=== PATIENT | female | born 1980 | race Caucasian/White ===

== ENCOUNTER 2016-12-01 08:00 | Inpatient (IN) ==
[2016-12-01] MEDS ORDERED: miSOPROStol 25 MCG TABLET VG PRN (08:16)
[2016-12-01] MEDS ORDERED: Famotidine 20 MG/2 ML VIAL IVP PRN (08:16)
[2016-12-01] MEDS ORDERED: Ondansetron 4 MG/2 ML VIAL IVP PRN (08:16)
[2016-12-01] MEDS ORDERED: Metoclopramide 10 MG/2 ML VIAL IVP PRN (08:16)
[2016-12-01 08:52] LABS: Basophils % 0.4 %; Eosinophils % 0.4 %; Hematocrit 29.2 % (35.3-44.9); Hemoglobin 9.6 g/dL (11.5-15.4); Immature Granulocytes % 0.5 % (0-4); Immature Platelets 11.1 % (1.1-6.1); Lymphocytes % 16.9 %; Mean Corpuscular HGB Conc 32.9 g/dL (31.6-35.5); Mean Corpuscular Volume 91.3 fL (83.0-100.0); Mean Platelet Volume 11.1 fL (9.4-12.4); Monocytes # 0.5 K/mcL (0.0-1.3); Monocytes % 8.6 %; Neutrophils # 4.2 K/mcL (1.6-8.9); Platelet Count 144 K/mcL (140-400); Red Cell Distribution Width 14.6 % (11.5-14.5); Segmented Neutrophils % 73.2 %
--- NOTE | 2016-12-01 08:52 | OB/GYN History & Physical ---
Date of Encounter: 12/01/16 Time of Encounter: 08:45 Assessment and Plan (1) and not yet delivered in third trimester Current visit: Yes Status: Acute (2) 39 weeks gestation of Current visit: Yes Status: Acute (3) Diet controlled gestational diabetes mellitus in third trimester Current visit: Yes Status: Acute (4) LGA (large for gestational age) fetus affecting management of mother Current visit: Yes Status: Acute (5) Elective induction of labor planned Current visit: Yes Status: Acute plan is to induce patient with Cytotec and a Simon catheter plan is to anticipate vaginal delivery History of Present Illness HPI: Ms. Carcamo is a 36 year old female 2 para 1 at 39-3/7 weeks by last menstrual period equal to an 8-4/7 week ultrasound who presented for induction of labor secondary to term , favorable cervix with large for gestational age infant. Patient had an ultrasound one week ago which placed the baby at 3797 g which is greater than the 90th percentile. Patient is an A1 gestational diabetic well controlled and NSTs have been reactive. First baby was 8 pounds no complications with that . Patient's course other than diabetes has been unremarkable did advise once we got into the 39 week range we would induce. Patient denies any leaking of fluid could movement and no contractions GBS status was negative. Past Med Surg Social Fam HX - Past Medical History Medical history: no medical history, other (Gestational diabetes A1) Psychiatric history: no psych history - Past Surgical History Surgical History: other (Kidney stone removal) - Social History Smoking Status: Never smoker Smokeless Tobacco Status: No Alcohol use: none Drug use: none Occupational status: employed Current living situation: Home - Independent Activity Level: Independent ambulation Recent Out of Country Travel Within the Last 8 Weeks: No Exposure or Possible Exposure to Illness During Travel: No - Family History Father Living Status: Still Living Hx Family Endocrine Disorder: Yes (DIABETES) - Additional Family History Additional family history: Family history is noncontributory at this time Obstetrical History - Pregnancies : 2 Para: 1 Term: 1 : 0 Ab's: 0 Livin Medications and Allergies Ferrous Sulfate [Iron] 1 tab PO DAILY 12/01/16 [History] Folic Acid [Folic Acid] 1 tab PO DAILY 12/01/16 [History] Multivitamin [Flintstones] 1 each PO DAILY 12/01/16 [History] Allergies No Known Allergies Allergy (Verified 04/20/16 09:09) Review of System OB All systems PM: reviewed and no additional remarkable complaints except as stated Exam - Constitutional Constitutional: well developed, well nourished, no acute distress, average body habitus - HEENT HEENT: EOMI, PERRL - Neck Neck exam: full ROM - Lungs Respiratory exam: CTAB - Cardiovascular Cardiovascular exam: RRR - Abdomen Abdomen: Present: gravid - Cervix Dilation: 3 Effacement: 80 Station: -2 (simon catheter placed, with 25 g of Cytotec placed in the posterior fornix) - Comments Comments: heart tones 140s reactive occasional contractions Results Result Diagrams: 12/01/16 08:45 12/01/16 08:45 All other labs normal. - VTE Reasons for not Prescribing Prophylaxis: Treatment not Indicated - Low risk for VTE
[2016-12-01] MEDS: Ringers Solution, Lactated 1,000 ML IVC SCH ×2 (09:05→20:20)
[2016-12-01] MEDS ORDERED: EPHEDrine 50 MG/ML VIAL IVP PRN (12:24)
[2016-12-01] MEDS ORDERED: Ringers Solution, Lactated 500 ML IVC ONE (12:24)
[2016-12-01] MEDS ORDERED: Epidural Premix (fent/bupiv) 110 ML EP ONE ×2 (12:28→18:36)
[2016-12-01] MEDS ORDERED: Epidural Premix (fent/bupiv) 110 ML EP SCH (12:30)
--- NOTE | 2016-12-01 13:12 | Anesthesia Evaluation PreOp ---
Date of Encounter: 12/01/16 Time of Encounter: 13:10 - Past History Planned Operation: MEGHANN Cardiac History: Denies any Significant Hx Pulmonary History: Denies Any Significant HX NITROGEN OPERATOR History: Denies Any Significant HX Other Medical History: Diabetes Type II (gestational) Anesthesia History: No Prior Anesthetic Complications, Past Anesthesia : Yes Alcohol Use: none Drug use: none Medications and Allergies Ferrous Sulfate [Iron] 1 tab PO DAILY 12/01/16 [History] Folic Acid [Folic Acid] 1 tab PO DAILY 12/01/16 [History] Multivitamin [Flintstones] 1 each PO DAILY 12/01/16 [History] Allergies No Known Allergies Allergy (Verified 04/20/16 09:09) - Meds/Allergy Pre-op Review Medications Reviewed: Yes Allergies Reviewed: Yes Beta Blockers on Current Med List: No Anesthesia Results - Labs 12/01/16 08:45 12/01/16 08:45 Anesthesia Exam 111/74 Height: 1.6 Weight: 72kg NPO (# of Hours): 5 Pain Scale: 2 Pain Scale Used: Numeric (1 - 10) - HEENT Pupil (Motor): Pupils equal Mallampati: II Teeth: Normal Oral Opening: Greater than 3 - NITROGEN OPERATOR LOC: Oriented NITROGEN OPERATOR Motor: Normal RUE, Normal LUE, Normal RLE, Normal LLE, Normal Face NITROGEN OPERATOR Sensory: Normal: RUE, LUE, RLE, LLE, Face - Cardiac Rhythm: Regular Murmur: None JVD: No Carotid Bruit: No - Pulmonary Breath Sounds: bilateral Clear Respiratory Effort: Symmetrical Anesthesia Assess/Plan ASA Score: 2 Modified Ivonne Scale for Level of Consciousness: Cooperative, oriented, and tranquil Anesthetic Plan: General (plan b), Regional (plan a) Autologous Blood: Yes Monitoring Plan: Standard Monitors
--- NOTE | 2016-12-01 13:14 | Anesthesia Procedures ---
Date of Encounter: 12/01/16 Time of Encounter: 13:12 Procedures: Anesthesia - Epidural/Spinal Patient ID/Chart reviewed: Yes Patient examined: Yes OB Eval: Gestational age: 39.3 OB Eval: : 2 OB Eval: Hx Para: 1 OB Eval: Dilated at (cm): 4 OB Eval: Contractions: Non-stressed pattern Consent Obtained: Yes Supplemental Oxygen: None/Room Air Site Prep: Aseptic Technique, Sterile prep and drape, Povidone-Iodine 1% Patient position: upright Local Anesthetic: Lidocaine 1% Amount of Local Anesthetic used: 3 Touhy Needle Gauge: 18 Touhy Needle Depth (cm): 6 Catheter Depth at Skin (cm): 14 Test Dose (1.5% Lido + Epi): Volume given (mls): 5 Test Dose Result: Negative Loading Dose: Other: 5ml pharm bag premix Loading Dose Administered: Thru Catheter Infusion Med: 0.125% Bupivacaine w/ 2 mcg/ml Fentanyl Infusion Rate (mls/hr): 14 ([id number] [id number]) Catheter Secured in Place: Tegaderm, Tape Interspace Used: L3-L4 Loss of Resistance (KYRIE): Yes Blood: No CSF: No Paresthesia: No Procedure: pt tolerated procedure well. no complications. vss. 104/64 hr 88 fhr 130 105/65 hr 80 fhr 135
--- NOTE | 2016-12-01 13:37 | OB Labor Progress Note ---
Date of Encounter: 12/01/16 Time of Encounter: 13:35 Labor Progress Note - Subjective Subjective: Patient is comfortable after her epidural - Cervix Cervix: 5-6/80/-2 AROM large amt clear fluid - Heart Tones Heart Tones: heart tones 140s reactive - [place]: Contractions every 2-3 minutes - Plan Plan: anticipate
[2016-12-01] MEDS ORDERED: *HR* FentaNYL (PF) 100 MCG/2 ML VIAL ONE (15:04)
[2016-12-01] MEDS ORDERED: Lidocaine/EPI 1:200k 2% PF 20 ML VIAL ONE (15:06)
--- NOTE | 2016-12-01 15:14 | Anesthesia Progress Note ---
Date of Encounter: 12/01/16 Time of Encounter: 15:13 Anesthesia Note - Note Note: 12/01/16 15:13 called for increased pain on the left side during contractions. bolus given 5ml 2%lidocaine with epi with 100 mcg fentanyl. rate increased to 16ml/hr. pt tolerated well. vss. fhr stable.
--- NOTE | 2016-12-01 16:48 | OB Labor Progress Note ---
Date of Encounter: 12/01/16 Time of Encounter: 16:00 Labor Progress Note - Subjective Subjective: Patient's epidural not really helping still uncomfortable - Cervix Cervix: 8/80/0 IUPC placed - Heart Tones Heart Tones: heart tones 140s reactive - [place]: IUPC placed contractons every 2 min - Plan Plan: We will try to make more comfortable with epidural plan is to anticipate vaginal delivery
[2016-12-01] MEDS ORDERED: Oxytocin 20 units/ LR 1000 mL 20 UNIT/1,000 ML BAG IVC ONE (18:25)
[2016-12-01] MEDS ORDERED: Oxytocin 20 units/ LR 1000 mL 20 UNIT/1,000 ML BAG IVC SCH (18:30)
--- NOTE | 2016-12-01 18:30 | OB Labor Progress Note ---
Date of Encounter: 12/01/16 Time of Encounter: 18:30 Labor Progress Note - Subjective Subjective: Patient much more comfortable after the second epidural - Cervix Cervix: 8-9/100/+1 - Heart Tones Heart Tones: heart tones 140s reactive - [place]: Contractions irregular every 2-5 minutes - Plan Plan: We will augment with Pitocin plan is to anticipate vaginal delivery
[2016-12-01] MEDS ORDERED: Acetaminophen 325 MG TABLET PO ONE (20:35)
[2016-12-01] MEDS ORDERED: Lidocaine 1% 20 ML MDV ONE (22:42)
--- NOTE | 2016-12-01 23:11 | OB/GYN Procedure Note ---
Delivery - Delivery Date: 12/01/16 Provider: Aroldo Meyer Intrapartum events: none Delivery induction: simon, misoprostol Delivery augmentation: rupture of membranes, pitocin Delivery monitor: external FHT, external uterine, internal uterine Anesthesia: local, epidural Estimated Blood Loss: 200 - (s) A Delivery Date: 12/01/16 Delivery Time: 22:36 Presentation: vertex Position: SOURAV Route of delivery: Gender: Female Viability: Viable Pounds: 8 Ounces: 6 Weight Gram: 3.805 kg at 1 minute: 8 at 5 mins: 9 Shoulder Dystocia: not encountered Specimens collected: cord blood Placenta: spontaneous Cord: 3 umbilical vessels - Repair Episiotomy: none Laceration Description: Periurethral (left), Perineal - 2nd Degree - Complications Delivery complications: none Delivery comments: Patient is a 36-year-old 2 para 1 at 39-3/7 weeks who presented for induction of labor secondary to term with favorable cervix. Patient is a diet-controlled gestational diabetic has been well controlled. Patient was advised once we get her in the 39 week range the with schedule induction. Patient had a recent ultrasound placing the baby at 8-1/2 pounds so we decided at 39-1/2 weeks we would induce. She reports to labor and delivery early catheter was placed she was already 3 cm at this time. 25 g Cytotec was placed in the vagina. Patient's catheter fell out soon afterwards she received an epidural she was artificially ruptured with large amount clear fluid. Patient did require some Pitocin augmentation when she got to 8 cm due to the fact contractions were not regular. Patient progressed to complete and pushed for approximately 30 minutes delivering a viable female infant in right occiput anterior presentation at 20:25. There was no nuchal cord, no meconium, infant weight was 8 lbs. 6 oz. Apgars were 8 at 1 minute, 9 at 5 minutes. The center delivered spontaneously 3 vessel cord, computer numeric control setter Dr. Meyer, anesthesia epidural local, estimated blood loss 200 mL. She had a left periurethral and a second-degree perineal laceration. These were repaired with 3-0 Vicryl in usual fashion. Cervix and vagina was visualized and intact. Patient tolerated delivery well she will be observed 2 hours before being taken floor. - Disposition Mom disposition: stable in LDR disposition: stable in LDR
[2016-12-02] MEDS ORDERED: Acetaminophen 325 MG TABLET PO PRN (02:08)
[2016-12-02] MEDS ORDERED: Measles/Mumps/Rubella Vacc 0.5 ML VIAL SQ PRN (02:08)
[2016-12-02] MEDS ORDERED: Oxytocin 20 units/ LR 1000 mL 20 UNIT/1,000 ML BAG IVC SCH (02:08)
[2016-12-02] MEDS ORDERED: Ibuprofen 600 MG TABLET PO PRN (02:08)
[2016-12-02] MEDS ORDERED: *HR* HYDROcodone/Acet 5/325 mg TABLET PO PRN (02:08)
[2016-12-02 04:46] LABS: Basophils % 0.2 %; Hematocrit 25.1 % (35.3-44.9); Immature Granulocytes % 0.8 % (0-4); Lymphocytes # 0.9 K/mcL (0.6-4.6); Lymphocytes % 7.2 %; Mean Corpuscular HGB Conc 31.9 g/dL (31.6-35.5); Mean Corpuscular Hemoglobin 29.3 pg (28.0-33.3); Mean Corpuscular Volume 91.9 fL (83.0-100.0); Mean Platelet Volume 11.9 fL (9.4-12.4); Monocytes # 0.6 K/mcL (0.0-1.3); Monocytes % 4.8 %; Platelet Count 108 K/mcL (140-400); Red Blood Count 2.73 M/mcL (3.82-4.97); Red Cell Distribution Width 14.7 % (11.5-14.5)
[2016-12-02 04:50] LABS: Neutrophils # 10.4 K/mcL (1.6-8.9)
[2016-12-02] MEDS ORDERED: Prenatal Vit/FA 1 EACH TABLET PO SCH (09:00)
[2016-12-02] MEDS ORDERED: Folic Acid 1 MG TABLET PO SCH (09:00)
--- NOTE | 2016-12-02 09:17 | OB/GYN Progress Note ---
Date of Encounter: 12/02/16 Time of Encounter: 09:14 - Assessment and Plan (1) (normal spontaneous vaginal delivery) Current Visit: Yes Status: Acute Pt meeting milestones. Continue to work on . Anticipate discharge home PPD#2. (2) Mother currently breast-feeding Current Visit: Yes Status: Acute (3) anemia Current Visit: Yes Status: Acute Pt denies s/sx anemia this am. Continue to monitor. Anticipate discharge home on iron. Subjective - Subjective Patient reports: appetite normal, voiding normally, pain well controlled, ambulating normally : doing well Objective - Latest Vital Signs Latest vital signs: Vital Signs Temp Pulse Resp BP Pulse Ox 12/02/16 08:20 98.3 F 80 16 96/60 98 12/02/16 03:20 98.9 F 90 16 93/51 97 12/02/16 02:18 98.0 F 76 16 98/58 97 12/02/16 02:08 98.0 F 76 16 98/58 97 12/02/16 01:15 98.4 F 78 16 97/50 98 Intake and Output 12/01/16 12/02/16 12/02/16 23:59 07:59 15:59 Intake Total 1000 / 1000 120 / 120 Output Total 200 / 200 800 / 800 Balance 1000 / 1000 -80 / -80 -800 / -800 Intake: IV Fluids 1000 / 1000 Lactated Ringers 1,000 ML 1000 / 1000 @ 125 mls/hr IVC .Q8H COUNTS INCLUDE 234 BEDS AT THE [facility] Rx#:[id number] Oral 120 / 120 Output: Urine 200 / 200 800 / 800 Other: Weight 70.5 kg Patient Weight 12/02/16 23:59 Weight 70.5 kg - Exam Lungs: bilateral: normal Chest: Normal S1, Normal S2 Extremities: Present: edema (mild edema bilaterlly) Abdomen: Present: soft. Absent: tenderness Uterus: Present: firm Uterus Position: At Umbilicus, Left of Midline Comments: Pt reports she needs to void - Labs Labs: Laboratory Results - last 24 hr 12/02/16 04:11 WBC 12.0 H D RBC 2.73 L Hgb 8.0 L D Hct 25.1 L MCV 91.9 MCH 29.3 MCHC 31.9 RDW 14.7 H Plt Count 108 L MPV 11.9 Immature Gran % 0.8 Seg Neutrophils % 87.0 Lymphocytes % 7.2 Monocytes % 4.8 Eosinophils % 0.0 Basophils % 0.2 Neutrophils # 10.4 H Lymphocytes # 0.9 Monocytes # 0.6 Eosinophils # 0.0 Basophils # 0.0
[2016-12-02 20:49] VITALS: BP 111/67
--- NOTE | 2016-12-02 21:08 | Discharge Summary ---
Date of Encounter: 12/02/16 Time of Encounter: 21:06 - Discharge Diagnosis (1) (normal spontaneous vaginal delivery) Priority: Primary Status: Acute Comments: Pt meeting all milestones. (2) Mother currently breast-feeding Priority: Secondary Status: Acute (3) anemia Priority: Secondary Status: Acute Comments: Discharge home on iron. - Discharge Medications Prescriptions: Ibuprofen [Motrin] 600 mg PO Q6HR PRN #60 tablet PRN Reason: Cramping Docusate [Colace] 100 mg PO BID #60 capsule Ferrous Sulfate 325 mg PO DAILY #30 tablet Home Medications: Multivitamin [Flintstones] 1 each PO DAILY 12/01/16 [History] Docusate [Colace] 100 mg PO BID #60 capsule 12/02/16 [Rx] Ferrous Sulfate 325 mg PO DAILY #30 tablet 12/02/16 [Rx] Ibuprofen [Motrin] 600 mg PO Q6HR PRN #60 tablet 12/02/16 [Rx] Allergies/Adverse Reactions: Allergies No Known Allergies Allergy (Verified 04/20/16 09:09) Data Procedures and tests throughout hospitalization: Laboratory Tests 12/01/16 12/01/16 12/02/16 08:45 08:45 04:11 WBC 5.7 12.0 H D RBC 3.20 L 2.73 L Hgb 9.6 L 8.0 L D Hct 29.2 L 25.1 L MCV 91.3 91.9 MCH 30.0 29.3 MCHC 32.9 31.9 RDW 14.6 H 14.7 H Plt Count 144 108 L MPV 11.1 11.9 Immature Gran % 0.5 0.8 Seg Neutrophils % 73.2 87.0 Lymphocytes % 16.9 7.2 Monocytes % 8.6 4.8 Eosinophils % 0.4 0.0 Basophils % 0.4 0.2 Neutrophils # 4.2 10.4 H Lymphocytes # 1.0 0.9 Monocytes # 0.5 0.6 Eosinophils # 0.0 0.0 Basophils # 0.0 0.0 Immature Plt Fraction 11.1 H Glucose 82 Labs on day of discharge: Labs from last 24 hours 12/02/16 04:11 WBC 12.0 H D RBC 2.73 L Hgb 8.0 L D Hct 25.1 L MCV 91.9 MCH 29.3 MCHC 31.9 RDW 14.7 H Plt Count 108 L MPV 11.9 Immature Gran % 0.8 Seg Neutrophils % 87.0 Lymphocytes % 7.2 Monocytes % 4.8 Eosinophils % 0.0 Basophils % 0.2 Neutrophils # 10.4 H Lymphocytes # 0.9 Monocytes # 0.6 Eosinophils # 0.0 Basophils # 0.0 Date of admission: 12/01/16 08:06 Primary care physician: Robin Goss Consults: 12/02/16 02:08 Consult to Crane Service Technician [CONS] Routine Comment: Vaginal delivery, consult needed Discharging clinician: Elin Matson Anticipated date of discharge: 12/02/16 - Patient Status Disposition: Home, Self-Care Condition: Good Functional capacity at discharge: independent ambulation Overall status at discharge: patient is progressing back to baseline - Discharge Instructions Follow Up With: Robin Goss DO [Primary Care Provider] - Aroldo Meyer DO [Partnered Physician] - - Diet and Activity Activity: increase activity as tolerated Hospital Course Reason for admission: induction of labor Delivery: Episiotomy: none Laceration: 2nd degree Other procedures: none complications: none Discharge diagnosis: IUP at term delivered baby: female Hospital course: - Delivery Date: 12/01/16 Provider: Aroldo Meyer Intrapartum events: none Delivery induction: simon, misoprostol Delivery augmentation: rupture of membranes, pitocin Delivery monitor: external FHT, external uterine, internal uterine Anesthesia: local, epidural Estimated Blood Loss: 200 - Infant (s) A Delivery Date: 12/01/16 Infant Delivery Time: 22:36 Presentation: vertex Position: SOURAV Route of delivery: Gender: Female Viability: Viable Pounds: 8 Ounces: 6 Weight Gram: 3.805 kg at 1 minute: 8 at 5 mins: 9 Shoulder Dystocia: not encountered Specimens collected: cord blood Placenta: spontaneous Cord: 3 umbilical vessels - Repair Episiotomy: none Laceration Description: Periurethral (left), Perineal - 2nd Degree - Complications Delivery complications: none - Disposition Mom disposition: home PPD#1 [place] disposition: home with mother, Time Attestation: Total time spent providing and/or coordinating discharge services: Time Spent: Less than 30 minutes Exam - Constitutional Vitals: Temp Pulse Resp BP Pulse Ox 98.1 F 95 12 111/67 98 12/02/16 20:47 12/02/16 20:47 12/02/16 20:47 12/02/16 20:47 12/02/16 20:47
== END 2016-12-02 23:55 | disposition home or self-care (01) | DRG 775 ==
LOC: 1NENULAB 08:06 → 1NENUOBS 12-02 01:20
PROVIDERS: ADMIT Obstetrics & Gynecology; ATTEND Obstetrics & Gynecology